=== PATIENT | male | born 1960 | race Caucasian/White ===

== ENCOUNTER 2018-04-08 08:58 | Outpatient (CLI) | payer BC ==
[2018-04-08 09:34] LABS: Estimated GFR-MDRD - POC Greater than 90
--- NOTE | 2018-04-08 12:00 | MRI ---
MRI LUMBAR SPINE WITH AND WITHOUT CONTRAST: INDICATIONS: History of neuropathy and type 2 diabetes with chronic low back pain and bilateral lower extremity ne uropathy. COMPARISON: None. CONTRAST: MultiHance 15 mL. FINDINGS: Five lumbar type vertebral bodies are seen for the purposes of this exam. No marrow signal abnormali ty is evident. The conus is seen to terminate at approximately T12-L1. At the L5-S1 level, there is mild facet joint degenerative change and broad-based disk bulge, but no appreciable central canal or neural foraminal narrowing. At L4-L5, there is mild facet joint degenerative change and broad-based disk bulge, but no appreciabl e central canal or neural foraminal narrowing. At L3-L4, there is no appreciable central canal or neural foraminal narrowing. At L2-L3, there is no appreciable central canal or neural foraminal narrowing. At L1-L2, there is no appreciable central canal or neural foraminal narrowing. At L1-L2, there is no appreciable central canal or neural foraminal narrowing. T12-L1: There is no appreciable central canal or neural foraminal narrowing. Post contrast images demonstrate no area of abnormal enhancement. IMPRESSION: Mild spondylosis of the lumbar spine. POS: CET
== END 2018-04-08 08:59 | disposition home or self-care (01) ==
LOC: SCSMRI 08:58
PROVIDERS: ATTEND Anesthesiology Pain Medicine
DX: M54.5 Low back pain (principal); G89.29 Other chronic pain; E11.40 Type 2 diabetes mellitus with diabetic neuropathy, unspecified; M47.816 Spondylosis without myelopathy or radiculopathy, lumbar region; Z68.27 Body mass index [BMI] 27.0-27.9, adult; Z79.891 Long term (current) use of opiate analgesic
CPT/HCPCS: 72158; 82565

== ENCOUNTER 2021-02-27 07:06 | Outpatient (CLI) | payer BC | END 2021-02-27 07:07 | disposition home or self-care (01) | LOC: ULT 07:06 | PROVIDERS: ATTEND Internal Medicine Endocrinology, Diabetes & Metabolism | DX: R10.12 Left upper quadrant pain (principal); N28.1 Cyst of kidney, acquired; K76.0 Fatty (change of) liver, not elsewhere classified | CPT/HCPCS: 76700 ==

== ENCOUNTER 2022-12-31 08:43 | Outpatient (CLI) | payer OTHER ==
[2022-12-31 10:13] LABS: Bilirubin Neg (Negative); Blood, Urine Negative (Negative); Clarity Clear (Clear); Glucose, Urine (Dipstick) >=1000 mg/dL (Negative); Ketone, Urine 15 mg/dL (Negative); Leukocyte Negative (Negative); Nitrite Negative (Negative); Protein, Urine (Dipstick) 30 mg/dl (Neg-Trace); Urobilinogen Normal mg/dL (Less than 2)
[2022-12-31 10:32] LABS: Hematocrit 48.5 % (38.8-50.0); Hemoglobin 15.7 g/dL (13.5-17.5); Mean Corpuscular HGB CONC 32.4 g/dL (32.0-36.0); Mean Corpuscular Hemoglobin 30.5 pg (27.0-33.0); Mean Corpuscular Volume 94.2 fl (81.2-95.1); Mean Platelet Volume 9.8 fl (7.4-10.4); Platelet Count 338 10x3/uL (150-450); RBC Distribution Width 14.9 % (11.5-14.5); Red Blood Cell (RBC) Count 5.15 10x6/uL (4.32-5.72); White Blood Cell (WBC) Count 9.5 10x3/uL (3.5-10.5)
[2022-12-31 10:38] LABS: RBC/HPF 0-3 HPF (0-3); WBC/HPF 0-3 HPF (0-3)
[2022-12-31 10:39] LABS: Squamous Epithelial None Seen HPF (0-3)
[2022-12-31 10:40] LABS: Bacteria/HPF None Seen HPF (None Seen)
[2022-12-31 10:42] LABS: PTT 29.9 sec (22.0-33.0); Prothrombin Time 10.3 sec (9.5-12.1)
[2022-12-31 10:55] LABS: Anion Gap 17 mmol/L (10-20); BUN (Urea Nitrogen) 18 mg/dL (8.4-25.7); Calc. Creatinine Clearance 0 mL/min (70-130); Calcium 9.2 mg/dL (7.8-10.44); Carbon Dioxide 19 mmol/L (23-31); Chloride 103 mmol/L (98-107); Estimated GFR 99; Glucose 137 mg/dL (80-115); Potassium 4.4 mmol/L (3.5-5.1); Sodium 135 mmol/L (136-145)
== END 2022-12-31 08:44 | disposition home or self-care (01) ==
LOC: LABBT 08:43
PROVIDERS: ATTEND Urology
DX: Z01.818 Encounter for other preprocedural examination (principal); E11.69 Type 2 diabetes mellitus with other specified complication; I25.10 Atherosclerotic heart disease of native coronary artery without angina pectoris; N28.1 Cyst of kidney, acquired; E66.9 Obesity, unspecified; G89.4 Chronic pain syndrome
CPT/HCPCS: 71046; 80048; 81001; 85027; 85610; 85730; 87086; 93005; 93010

== ENCOUNTER 2022-12-31 09:00 | Inpatient (IN) | payer OTHER ==
[2022-12-31 09:22] VITALS: BMI 35.7
[2023-01-14] MEDS ORDERED: fentaNYL PF 100 MCG/2 ML SYRINGE ONE ×2 (06:45)
[2023-01-14] MEDS ORDERED: Bacitracin Zinc Ointment 30 gm TUBE ONE (06:50)
[2023-01-14] MEDS ORDERED: Midazolam HCl 2 mg/2 ml Vial ONE (07:22)
[2023-01-14] MEDS ORDERED: fentaNYL 50 mcg/mL 1 mL Vial ONE ×2 (07:22→13:18)
[2023-01-14] MEDS ORDERED: Vancomycin 1 GM/200 ML (FROZEN) BAG ONE (07:49)
[2023-01-14] MEDS ORDERED: Lidocaine 1% (PF) 30 ML VIAL ONE (08:03)
[2023-01-14] MEDS ORDERED: PHENYLEPHRINE-NS 100 MCG/ML 10 ML SYRINGE ONE (08:39)
[2023-01-14] MEDS ORDERED: PROPOFOL 200 MG/20 ML VIAL ONE (08:39)
[2023-01-14] MEDS ORDERED: Ondansetron PF 4 MG/2 ML Vial ONE ×2 (08:39→12:39)
[2023-01-14] MEDS ORDERED: Rocuronium Bromide 10 MG/ML (10ML VIAL) ONE (08:39)
[2023-01-14] MEDS ORDERED: Lidocaine 1% PF 5 ML VIAL ONE (08:39)
[2023-01-14] MEDS ORDERED: diphenhydrAMINE 50 MG/ML VIAL IVP PRN (09:15)
[2023-01-14] MEDS ORDERED: Moisturizing Cream (Eucerin) 113 GM JAR TOP PRN (09:15)
[2023-01-14] MEDS ORDERED: Zolpidem Tartrate 5 MG TAB PO PRN (09:15)
[2023-01-14] MEDS ORDERED: Naloxone HCl 0.4 mg/ml Vial IVP PRN (09:15)
[2023-01-14] MEDS ORDERED: Naloxone HCl 0.4 mg/ml Vial IV PRN (09:15)
[2023-01-14] MEDS ORDERED: traMADol HCl 50 MG TAB PO PRN ×2 (09:15)
[2023-01-14] MEDS ORDERED: diphenhydrAMINE 50 MG/ML VIAL IM PRN (09:15)
[2023-01-14] MEDS ORDERED: HYDROcodone/Acetaminophen 5/325 mg Tablet PO PRN ×2 (09:15)
[2023-01-14] MEDS ORDERED: diphenhydrAMINE 25 MG CAP PO PRN (09:15)
[2023-01-14] MEDS ORDERED: Promethazine HCl 25 MG/ML VIAL IM PRN (09:15)
[2023-01-14] MEDS ORDERED: Promethazine HCl 25 MG SUPP PR PRN (09:15)
[2023-01-14] MEDS ORDERED: EPINEPHrine 1 MG/ML AMP ONE (09:23)
[2023-01-14] MEDS ORDERED: Bupivacaine 0.25% HCL 30 ML VIAL ONE (09:23)
[2023-01-14] MEDS ORDERED: ACTIVE EPIDURAL FS SCH (09:30)
[2023-01-14] MEDS ORDERED: SUGAMMADEX SODIUM 200 MG/2 ML VIAL ONE (11:36)
[2023-01-14] MEDS ORDERED: Glucagon 1 MG/ML KIT IM PRN (14:35)
[2023-01-14] MEDS ORDERED: Dextrose 5% in Water 1,000 ML IV PRN (14:35)
[2023-01-14] MEDS ORDERED: Mag-Al 1200 mg/1200 mg/30 ML UDCUP PO PRN (14:35)
[2023-01-14] MEDS ORDERED: Bisacodyl 10 MG SUPP PR PRN (14:35)
[2023-01-14] MEDS ORDERED: Dextrose 50% Abboject 50 ML SYRINGE SLOW IVP PRN (14:35)
[2023-01-14] MEDS ORDERED: HumaLOG 300 UNITS/3 ML VIAL SC PRN (14:35)
[2023-01-14] MEDS ORDERED: PHENYLEPHRINE-NS 100 MCG/ML 10 ML SYRINGE IVP PRN (15:01)
[2023-01-14 15:50] LABS: Hematocrit 43.9 % (42.0-52.0); Hemoglobin 13.4 g/dL (14.0-18.0); Mean Corpuscular HGB CONC 30.5 g/dL (32.0-36.0); Mean Corpuscular Hemoglobin 30.9 pg (27.0-31.0); Mean Corpuscular Volume 101.2 fl (78.0-98.0); Platelet Count 268 10x3/uL (130-400); RBC Distribution Width 14.7 % (11.5-14.5); Red Blood Cell (RBC) Count 4.34 mill/uL (4.70-6.10)
[2023-01-14 17:42] LABS: Anion Gap 17 mmol/L (10-20); BUN (Urea Nitrogen) 16 mg/dL (8.4-25.7); Calc. Creatinine Clearance 89 mL/min (70-130); Calcium 8.2 mg/dL (7.8-10.44); Carbon Dioxide 20 mmol/L (23-31); Chloride 104 mmol/L (98-107); Estimated GFR 69; Glucose 229 mg/dL (80-115); Potassium 4.5 mmol/L (3.5-5.1); Sodium 136 mmol/L (136-145)
[2023-01-14] MEDS: Sodium Chloride 0.9% 1,000 ML IV SCH (17:53)
[2023-01-14] MEDS: Ondansetron PF 4 MG/2 ML Vial IVP PRN (17:53)
[2023-01-14] MEDS: Glimepiride 4 MG TAB PO SCH (17:54)
[2023-01-14] MEDS: Gemfibrozil 600 MG TAB PO SCH (17:54)
[2023-01-14] MEDS: Icosapent Ethyl 1 GM CAPSULE PO SCH (17:54)
[2023-01-14] MEDS ORDERED: Acetaminophen 500 MG TAB PO PRN (18:50)
[2023-01-14] MEDS: Vancomycin 1 GM in Premix 1 BAG IVPB SCH (21:02)
[2023-01-14] MEDS: Carvedilol 3.125 MG TAB PO SCH (21:02)
[2023-01-14] MEDS: Rosuvastatin 5 MG TAB PO SCH (21:02)
[2023-01-14] MEDS: Docusate 100 MG CAP PO SCH (21:03)
[2023-01-15] MEDS: Sodium Chloride 0.9% 1,000 ML IV SCH ×4 (04:04→21:03)
[2023-01-15] MEDS: FENTANYL 500 MCG/10 ML VIAL 500 MCG, Bupivacaine 0.75% 10 ML in Sodium Chloride 0.9% 80 ML EPIDURAL SCH ×2 (04:04→19:00)
[2023-01-15 04:58] LABS: #Monocytes 1.9 thou/uL (0.11-0.59); #Neutrophils 13.8 thou/uL (1.40-6.50); %Basophils 0.2 % (0.0-1.0); %Lymphocytes 12.4 % (21.0-51.0); %Monocytes 10.5 % (0.0-10.0); %Neutrophils 76.5 % (42.0-75.0); Hematocrit 42.7 % (42.0-52.0); Hemoglobin 13.3 g/dL (14.0-18.0); Mean Corpuscular HGB CONC 31.1 g/dL (32.0-36.0); Mean Corpuscular Hemoglobin 30.3 pg (27.0-31.0); Mean Platelet Volume 9.6 fL (7.4-10.4); Platelet Count 288 10x3/uL (130-400); Red Blood Cell (RBC) Count 4.39 mill/uL (4.70-6.10); White Blood Cell (WBC) Count 18.1 10x3/uL (4.8-10.8)
[2023-01-15 05:00] LABS: Mean Corpuscular Volume 97.3 fl (78.0-98.0)
[2023-01-15 05:23] LABS: Anion Gap 19 mmol/L (10-20); BUN (Urea Nitrogen) 16 mg/dL (8.4-25.7); Calc. Creatinine Clearance 87 mL/min (70-130); Calcium 8.1 mg/dL (7.8-10.44); Carbon Dioxide 19 mmol/L (23-31); Chloride 104 mmol/L (98-107); Estimated GFR 67; Glucose 207 mg/dL (80-115); Potassium 4.5 mmol/L (3.5-5.1); Sodium 137 mmol/L (136-145)
[2023-01-15] MEDS: LevoFLOXacin 500 MG TAB PO SCH (05:58)
[2023-01-15] MEDS: oxyCODONE 5 MG TAB PO PRN (05:58)
[2023-01-15] MEDS: Icosapent Ethyl 1 GM CAPSULE PO SCH ×2 (08:29→18:01)
[2023-01-15] MEDS: Vancomycin 1 GM in Premix 1 BAG IVPB SCH (08:29)
[2023-01-15] MEDS: Docusate 100 MG CAP PO SCH ×2 (08:30→21:01)
[2023-01-15] MEDS: Carvedilol 3.125 MG TAB PO SCH ×2 (08:30→21:01)
[2023-01-15] MEDS: Glimepiride 4 MG TAB PO SCH ×2 (08:30→18:07)
[2023-01-15] MEDS: Gemfibrozil 600 MG TAB PO SCH ×2 (08:30→18:02)
[2023-01-15] MEDS: DULoxetine 30 MG CAP PO SCH (10:22)
[2023-01-15] MEDS ORDERED: DULoxetine 30 MG CAP PO SCH (12:45)
[2023-01-15] MEDS: Acetaminophen 500 MG TAB PO SCH ×3 (13:42→18:07)
[2023-01-15 18:02] LABS: Actual Bicarbonate (HCO3a) 22.4 mEq/L (22-28); Base Excess (BEa) -3.7 mEq/L (-2.0 to +3.0); CO2 Tension 44.2 mmHg (35.0-45.0); Calcium, Ionized (arterial) 1.08 mmol/L (1.12-1.30); Carboxyhemoglobin (COHb) 2.3 gm% (0.0-3.0); Hematocrit-ABG 38 % (42.0-52.0); Hemoglobin (Hb) 12.9 g/dL (14.0-18.0); O2 Tension (PaO2), arterial 77.3 mmHg (> 80.0); Potassium - ABG Lab 3.98 mmol/L (3.70-5.30); pH, Arterial 7.322 (7.35-7.45)
[2023-01-15 18:04] LABS: Puncture Site RRA
[2023-01-15] MEDS ORDERED: Sodium Chloride 0.9% 500 ML IVPB SCH (18:15)
[2023-01-15] MEDS: HYDROcodone/Acetaminophen 5/325 mg Tablet PO PRN (18:32)
[2023-01-15] MEDS: Rosuvastatin 5 MG TAB PO SCH (21:01)
[2023-01-16] MEDS: Acetaminophen 500 MG TAB PO SCH ×4 (01:03→16:43)
[2023-01-16 04:00] LABS: #Monocytes 1.4 thou/uL (0.11-0.59); #Neutrophils 14.8 thou/uL (1.40-6.50); %Basophils 0.1 % (0.0-1.0); %Lymphocytes 7.5 % (21.0-51.0); %Monocytes 7.7 % (0.0-10.0); %Neutrophils 84.1 % (42.0-75.0); Hemoglobin 11.6 g/dL (14.0-18.0); Mean Corpuscular HGB CONC 30.5 g/dL (32.0-36.0); Mean Corpuscular Hemoglobin 29.8 pg (27.0-31.0); Mean Corpuscular Volume 97.7 fl (78.0-98.0); Mean Platelet Volume 9.5 fL (7.4-10.4); Platelet Count 250 10x3/uL (130-400); RBC Distribution Width 14.9 % (11.5-14.5); Red Blood Cell (RBC) Count 3.89 mill/uL (4.70-6.10); White Blood Cell (WBC) Count 17.6 10x3/uL (4.8-10.8)
[2023-01-16 04:24] LABS: Anion Gap 18 mmol/L (10-20); BUN (Urea Nitrogen) 21 mg/dL (8.4-25.7); Calc. Creatinine Clearance 99 mL/min (70-130); Calcium 7.8 mg/dL (7.8-10.44); Carbon Dioxide 17 mmol/L (23-31); Chloride 108 mmol/L (98-107); Estimated GFR 78; Glucose 170 mg/dL (80-115); Potassium 4.3 mmol/L (3.5-5.1); Sodium 139 mmol/L (136-145)
[2023-01-16] MEDS: LevoFLOXacin 500 MG TAB PO SCH (05:41)
[2023-01-16] MEDS: Sodium Chloride 0.9% 1,000 ML IV SCH ×2 (06:54→16:42)
[2023-01-16] MEDS: FENTANYL 500 MCG/10 ML VIAL 500 MCG, Bupivacaine 0.75% 10 ML in Sodium Chloride 0.9% 80 ML EPIDURAL SCH (07:01)
[2023-01-16] MEDS: Carvedilol 3.125 MG TAB PO SCH ×2 (08:48→20:01)
[2023-01-16] MEDS: Icosapent Ethyl 1 GM CAPSULE PO SCH ×2 (08:48→16:40)
[2023-01-16] MEDS: Gemfibrozil 600 MG TAB PO SCH ×2 (08:48→16:40)
[2023-01-16] MEDS: Glimepiride 4 MG TAB PO SCH ×2 (08:48→16:40)
[2023-01-16] MEDS: Docusate 100 MG CAP PO SCH ×2 (08:48→20:01)
[2023-01-16] MEDS ORDERED: DULoxetine 30 MG CAP PO SCH (09:00)
[2023-01-16] MEDS: DULoxetine 30 MG CAP PO SCH (09:39)
[2023-01-16] MEDS: oxyCODONE 5 MG TAB PO PRN ×2 (17:06→22:48)
[2023-01-16] MEDS: Rosuvastatin 5 MG TAB PO SCH (20:01)
[2023-01-17] MEDS: Acetaminophen 500 MG TAB PO SCH ×4 (01:18→17:09)
[2023-01-17] MEDS: Sodium Chloride 0.9% 1,000 ML IV SCH (01:18)
[2023-01-17 04:08] LABS: #Monocytes 2.5 thou/uL (0.11-0.59); #Neutrophils 17.3 thou/uL (1.40-6.50); %Basophils 0.2 % (0.0-1.0); %Monocytes 11.4 % (0.0-10.0); %Neutrophils 79.8 % (42.0-75.0); Hemoglobin 12.3 g/dL (14.0-18.0); Mean Corpuscular HGB CONC 28.6 g/dL (32.0-36.0); Mean Corpuscular Hemoglobin 30.4 pg (27.0-31.0); Mean Corpuscular Volume 106.2 fl (78.0-98.0); Mean Platelet Volume 9.6 fL (7.4-10.4); Platelet Count 258 10x3/uL (130-400); RBC Distribution Width 15.1 % (11.5-14.5); Red Blood Cell (RBC) Count 4.05 mill/uL (4.70-6.10); White Blood Cell (WBC) Count 21.7 10x3/uL (4.8-10.8)
[2023-01-17 04:32] LABS: Calcium 8.5 mg/dL (7.8-10.44); Chloride 110 mmol/L (98-107); Potassium 5.1 mmol/L (3.5-5.1); Sodium 135 mmol/L (136-145)
[2023-01-17 04:37] LABS: Carbon Dioxide Less than 8 mmol/L (23-31)
[2023-01-17 04:38] LABS: BUN (Urea Nitrogen) 27 mg/dL (8.4-25.7); Calc. Creatinine Clearance 81 mL/min (70-130); Estimated GFR 61; Glucose 174 mg/dL (80-115)
[2023-01-17 04:53] LABS: Anisocytosis SLIGHT = 6-15 cells HPF (0-5); CellaVision Operator ID lab.sh2; Hypochromia SLIGHT = 6-15 cells HPF (0-5); Macrocytosis SLIGHT = 6-15 cells HPF (0-5); Platelet Adequacy Comment Platelets Normal; Polychromasia SLIGHT = 2-3 cells HPF (0-2)
[2023-01-17 05:37] LABS: Base Excess -12.2 mEq/L (-2.0 to +3.0); Calcium, Ionized (venous) 1.01 mmol/L (1.16-1.32); Chloride (VBG) 106 mmol/L (98-106); Hematocrit-VBG 37 % (42.0-52.0); Hemoglobin (Hb) 12.6 g/dL (13.1-17.2); Potassium (VBG) 4.33 mmol/L (3.70-5.30); Sodium 137 mmol/L (133-146); pH (venous) 7.249 (7.32-7.43)
[2023-01-17] MEDS ORDERED: Sodium Bicarb 50 MEQ/50 ML Abboject 8.4% SYRINGE ONE (05:41)
[2023-01-17] MEDS: oxyCODONE 5 MG TAB PO PRN ×4 (05:54→21:14)
[2023-01-17 05:57] LABS: Lactic Acid 0.8 mmol/L (0.5-2.2)
[2023-01-17 06:00] LABS: Anion Gap 20 mmol/L (10-20); BUN (Urea Nitrogen) 28 mg/dL (8.4-25.7); Calc. Creatinine Clearance 83 mL/min (70-130); Calcium 8.5 mg/dL (7.8-10.44); Carbon Dioxide 12 mmol/L (23-31); Chloride 108 mmol/L (98-107); Estimated GFR 63; Glucose 184 mg/dL (80-115); Potassium 4.3 mmol/L (3.5-5.1); Sodium 136 mmol/L (136-145)
[2023-01-17] MEDS ORDERED: Sodium Bicarb 50 MEQ/50 ML Abboject 8.4% SYRINGE IVP SCH (06:00)
[2023-01-17] MEDS: Sodium Bicarbonate 150 MEQ in Dextrose 5 %-0.45 % NaCl 1,000 ML IV SCH ×2 (06:50→17:09)
[2023-01-17 07:07] LABS: Bacteria/HPF None Seen HPF (None Seen); Bilirubin Negative (Negative); Blood, Urine 2+ (Negative); CAUTI Indications for Culture Pelvic or flank pain; Clarity Clear (Clear); Glucose, Urine (Dipstick) Greater than 1000 mg/dL (Negative); Ketone, Urine 100 mg/dL (Negative); Leukocyte Negative Leu/uL (Negative); Nitrite Negative (Negative); Protein, Urine (Dipstick) 50 mg/dL (Neg-Trace); Specific Gravity, Urine 1.026 (1.002-1.036); Squamous Epithelial None Seen HPF (0-3); Urobilinogen Normal mg/dL (Less than 2); pH, Urine 5.5 (5.0-9.0)
[2023-01-17 07:08] LABS: Urine Culture Reflex Yes Yes
[2023-01-17] MEDS: DULoxetine 30 MG CAP PO SCH (10:01)
[2023-01-17] MEDS: LevoFLOXacin 750 mg/D5W 750 MG in Premix 1 BAG IVPB SCH (10:01)
[2023-01-17] MEDS: Glimepiride 4 MG TAB PO SCH ×2 (10:02→17:08)
[2023-01-17] MEDS: Carvedilol 3.125 MG TAB PO SCH ×2 (10:02→21:12)
[2023-01-17] MEDS: Icosapent Ethyl 1 GM CAPSULE PO SCH ×2 (10:02→17:07)
[2023-01-17] MEDS: Docusate 100 MG CAP PO SCH ×2 (10:02→21:12)
[2023-01-17] MEDS: Gemfibrozil 600 MG TAB PO SCH ×2 (10:05→17:08)
[2023-01-17] MEDS: FENTANYL 500 MCG/10 ML VIAL 500 MCG, Bupivacaine 0.75% 10 ML in Sodium Chloride 0.9% 80 ML EPIDURAL SCH (20:34)
[2023-01-17] MEDS: Rosuvastatin 5 MG TAB PO SCH (21:12)
[2023-01-17] MEDS: Insulin Glargine 30 UNITS/0.3 ML VIAL SC SCH ×2 (21:13→21:14)
[2023-01-18] MEDS: Acetaminophen 500 MG TAB PO SCH ×5 (01:20→23:36)
[2023-01-18 04:11] LABS: #Monocytes 1.1 thou/uL (0.11-0.59); %Basophils 0.1 % (0.0-1.0); %Eosinophils 0.1 % (0.0-10.0); %Lymphocytes 9.6 % (21.0-51.0); %Neutrophils 81.8 % (42.0-75.0); Hematocrit 39.1 % (42.0-52.0); Hemoglobin 12.4 g/dL (14.0-18.0); Mean Corpuscular HGB CONC 31.7 g/dL (32.0-36.0); Mean Corpuscular Hemoglobin 30.2 pg (27.0-31.0); Mean Platelet Volume 9.6 fL (7.4-10.4); Platelet Count 283 10x3/uL (130-400); RBC Distribution Width 14.7 % (11.5-14.5); White Blood Cell (WBC) Count 13.5 10x3/uL (4.8-10.8)
[2023-01-18 04:15] LABS: Mean Corpuscular Volume 95.4 fl (78.0-98.0)
[2023-01-18 04:34] LABS: Anion Gap 22 mmol/L (10-20); BUN (Urea Nitrogen) 28 mg/dL (8.4-25.7); Calc. Creatinine Clearance 97 mL/min (70-130); Calcium 8.4 mg/dL (7.8-10.44); Carbon Dioxide 15 mmol/L (23-31); Chloride 104 mmol/L (98-107); Estimated GFR 76; Glucose 215 mg/dL (80-115); Sodium 137 mmol/L (136-145)
[2023-01-18] MEDS: Sodium Bicarbonate 150 MEQ in Dextrose 5 %-0.45 % NaCl 1,000 ML IV SCH ×2 (05:45→17:20)
[2023-01-18] MEDS: Ondansetron PF 4 MG/2 ML Vial IVP PRN (05:48)
[2023-01-18] MEDS: LevoFLOXacin 750 mg/D5W 750 MG in Premix 1 BAG IVPB SCH (09:09)
[2023-01-18] MEDS: FENTANYL 500 MCG/10 ML VIAL 500 MCG, Bupivacaine 0.75% 10 ML in Sodium Chloride 0.9% 80 ML EPIDURAL SCH ×2 (09:17→21:47)
[2023-01-18] MEDS: oxyCODONE 5 MG TAB PO PRN (09:18)
[2023-01-18] MEDS: Gemfibrozil 600 MG TAB PO SCH ×2 (12:26→16:20)
[2023-01-18] MEDS: Icosapent Ethyl 1 GM CAPSULE PO SCH ×2 (12:26→16:20)
[2023-01-18] MEDS: Glimepiride 4 MG TAB PO SCH ×2 (12:26→16:20)
[2023-01-18] MEDS: Carvedilol 3.125 MG TAB PO SCH ×2 (12:27→20:20)
[2023-01-18] MEDS: Polyethylene Glycol 3350 17 GM Packet PO PRN (12:28)
[2023-01-18] MEDS: DULoxetine 30 MG CAP PO SCH (12:28)
[2023-01-18] MEDS: Docusate 100 MG CAP PO SCH (12:32)
[2023-01-18] MEDS: HumaLOG 300 UNITS/3 ML VIAL SC PRN (18:16)
[2023-01-18] MEDS: Senokot S 8.6-50 MG TAB PO SCH (20:20)
[2023-01-18] MEDS: Rosuvastatin 5 MG TAB PO SCH (20:20)
[2023-01-18] MEDS: Insulin Glargine 30 UNITS/0.3 ML VIAL SC SCH ×2 (20:24→20:26)
[2023-01-18] MEDS: hydrALAZINE 20 MG/ML VIAL SLOW IVP PRN (22:08)
[2023-01-18] MEDS: Sodium Bicarbonate Tab 325 MG TAB PO SCH (23:35)
[2023-01-19] MEDS: HumaLOG 300 UNITS/3 ML VIAL SC PRN (00:11)
[2023-01-19] MEDS: HYDROcodone/Acetaminophen 5/325 mg Tablet PO PRN ×2 (00:11→07:44)
[2023-01-19] MEDS: Ondansetron PF 4 MG/2 ML Vial IVP PRN (00:11)
[2023-01-19] MEDS: Sodium Bicarbonate 150 MEQ in Dextrose 5 %-0.45 % NaCl 1,000 ML IV SCH ×2 (04:57→12:10)
[2023-01-19] MEDS: Sodium Bicarbonate Tab 325 MG TAB PO SCH (05:21)
[2023-01-19] MEDS: Acetaminophen 500 MG TAB PO SCH ×3 (05:22→17:05)
[2023-01-19 05:48] LABS: #Monocytes 0.8 thou/uL (0.11-0.59); %Basophils 0.1 % (0.0-1.0); %Eosinophils 0.2 % (0.0-10.0); %Lymphocytes 12.5 % (21.0-51.0); %Monocytes 7.4 % (0.0-10.0); %Neutrophils 79.4 % (42.0-75.0); Hematocrit 36.4 % (42.0-52.0); Hemoglobin 11.3 g/dL (14.0-18.0); Mean Corpuscular Hemoglobin 29.7 pg (27.0-31.0); Mean Corpuscular Volume 95.5 fl (78.0-98.0); Mean Platelet Volume 9.2 fL (7.4-10.4); Platelet Count 275 10x3/uL (130-400); RBC Distribution Width 14.5 % (11.5-14.5); Red Blood Cell (RBC) Count 3.81 mill/uL (4.70-6.10); White Blood Cell (WBC) Count 11.3 10x3/uL (4.8-10.8)
[2023-01-19 06:14] LABS: Anion Gap 14 mmol/L (10-20); BUN (Urea Nitrogen) 27 mg/dL (8.4-25.7); Calc. Creatinine Clearance 108 mL/min (70-130); Calcium 8.4 mg/dL (7.8-10.44); Carbon Dioxide 32 mmol/L (23-31); Chloride 97 mmol/L (98-107); Estimated GFR 87; Glucose 233 mg/dL (80-115); Potassium 3.1 mmol/L (3.5-5.1); Sodium 140 mmol/L (136-145)
[2023-01-19] MEDS: Glimepiride 4 MG TAB PO SCH ×2 (07:36→17:05)
[2023-01-19] MEDS: Carvedilol 3.125 MG TAB PO SCH ×2 (07:36→20:30)
[2023-01-19] MEDS: Gemfibrozil 600 MG TAB PO SCH ×2 (07:36→17:05)
[2023-01-19] MEDS: Senokot S 8.6-50 MG TAB PO SCH ×2 (07:36→20:30)
[2023-01-19] MEDS: Polyethylene Glycol 3350 17 GM Packet PO PRN (07:36)
[2023-01-19] MEDS: Icosapent Ethyl 1 GM CAPSULE PO SCH ×2 (07:36→17:05)
[2023-01-19] MEDS: DULoxetine 30 MG CAP PO SCH (07:37)
[2023-01-19] MEDS: LevoFLOXacin 750 mg/D5W 750 MG in Premix 1 BAG IVPB SCH (07:37)
[2023-01-19] MEDS ORDERED: Electrolyte Replacement Protocol FS PRN (08:15)
[2023-01-19] MEDS ORDERED: Potassium Chloride 20 MEQ TAB PO SCH (08:15)
[2023-01-19] MEDS: FENTANYL 500 MCG/10 ML VIAL 500 MCG, Bupivacaine 0.75% 10 ML in Sodium Chloride 0.9% 80 ML EPIDURAL SCH (10:26)
[2023-01-19 13:58] LABS: Potassium 3.4 mmol/L (3.5-5.1)
[2023-01-19 15:36] LABS: Actual Bicarbonate (HCO3v) 13.9 mEq/L (22-28)
[2023-01-19] MEDS: Rosuvastatin 5 MG TAB PO SCH (20:30)
[2023-01-19] MEDS: Insulin Glargine 30 UNITS/0.3 ML VIAL SC SCH (20:41)
[2023-01-19] MEDS: oxyCODONE 5 MG TAB PO PRN (21:34)
[2023-01-20] MEDS: Acetaminophen 500 MG TAB PO SCH ×2 (00:53→06:06)
[2023-01-20] MEDS: FENTANYL 500 MCG/10 ML VIAL 500 MCG, Bupivacaine 0.75% 10 ML in Sodium Chloride 0.9% 80 ML EPIDURAL SCH (03:36)
[2023-01-20] MEDS: Sodium Bicarbonate 150 MEQ in Dextrose 5 %-0.45 % NaCl 1,000 ML IV SCH (05:17)
[2023-01-20 05:47] LABS: #Eosinphils 0.2 thou/uL (0.0-0.7); #Monocytes 0.7 thou/uL (0.11-0.59); #Neutrophils 7.4 thou/uL (1.40-6.50); %Basophils 0.2 % (0.0-1.0); %Eosinophils 1.8 % (0.0-10.0); %Lymphocytes 18.2 % (21.0-51.0); %Monocytes 7.2 % (0.0-10.0); %Neutrophils 72.2 % (42.0-75.0); Hematocrit 35.3 % (42.0-52.0); Hemoglobin 11.1 g/dL (14.0-18.0); Mean Corpuscular HGB CONC 31.4 g/dL (32.0-36.0); Mean Corpuscular Hemoglobin 29.6 pg (27.0-31.0); Mean Corpuscular Volume 94.1 fl (78.0-98.0); Mean Platelet Volume 9.5 fL (7.4-10.4); Platelet Count 280 10x3/uL (130-400); RBC Distribution Width 14.2 % (11.5-14.5); Red Blood Cell (RBC) Count 3.75 mill/uL (4.70-6.10); White Blood Cell (WBC) Count 10.3 10x3/uL (4.8-10.8)
[2023-01-20 06:09] LABS: Anion Gap 14 mmol/L (10-20); BUN (Urea Nitrogen) 21 mg/dL (8.4-25.7); Calc. Creatinine Clearance 137 mL/min (70-130); Calcium 8.4 mg/dL (7.8-10.44); Carbon Dioxide 30 mmol/L (23-31); Chloride 96 mmol/L (98-107); Estimated GFR 101; Glucose 83 mg/dL (80-115); Potassium 3.5 mmol/L (3.5-5.1); Sodium 136 mmol/L (136-145)
[2023-01-20] MEDS ORDERED: Potassium Chloride 20 MEQ TAB PO SCH ×2 (08:00→14:00)
[2023-01-20] MEDS: LevoFLOXacin 750 mg/D5W 750 MG in Premix 1 BAG IVPB SCH (08:14)
[2023-01-20] MEDS: Glimepiride 4 MG TAB PO SCH ×2 (08:15→17:42)
[2023-01-20] MEDS: Senokot S 8.6-50 MG TAB PO SCH ×2 (08:15→19:50)
[2023-01-20] MEDS: Gemfibrozil 600 MG TAB PO SCH ×2 (08:15→17:42)
[2023-01-20] MEDS: DULoxetine 30 MG CAP PO SCH (08:15)
[2023-01-20] MEDS: Carvedilol 3.125 MG TAB PO SCH ×2 (08:16→19:50)
[2023-01-20] MEDS: Icosapent Ethyl 1 GM CAPSULE PO SCH ×2 (08:16→17:48)
[2023-01-20] MEDS ORDERED: Acetaminophen 325 MG TAB PO PRN (11:50)
[2023-01-20] MEDS ORDERED: HYDROcodone/Acetaminophen 10/325 mg Tablet PO PRN (11:51)
[2023-01-20 12:25] LABS: Potassium 3.4 mmol/L (3.5-5.1)
[2023-01-20] MEDS: Tamsulosin HCl 0.4 MG CAP PO SCH (19:49)
[2023-01-20] MEDS: HYDROcodone/Acetaminophen 10/325 mg Tablet PO PRN (19:50)
[2023-01-20] MEDS: Rosuvastatin 5 MG TAB PO SCH (19:50)
[2023-01-20] MEDS: Insulin Glargine 30 UNITS/0.3 ML VIAL SC SCH (21:23)
[2023-01-21] MEDS: FENTANYL 500 MCG/10 ML VIAL 500 MCG, Bupivacaine 0.75% 10 ML in Sodium Chloride 0.9% 80 ML EPIDURAL SCH
[2023-01-21] MEDS: HYDROcodone/Acetaminophen 10/325 mg Tablet PO PRN ×5 (00:31→19:39)
[2023-01-21 05:47] LABS: #Eosinphils 0.1 thou/uL (0.0-0.7); #Monocytes 0.8 thou/uL (0.11-0.59); #Neutrophils 6.2 thou/uL (1.40-6.50); %Basophils 0.1 % (0.0-1.0); %Eosinophils 1.5 % (0.0-10.0); %Lymphocytes 21.3 % (21.0-51.0); %Monocytes 8.5 % (0.0-10.0); %Neutrophils 68.3 % (42.0-75.0); Hemoglobin 11.4 g/dL (14.0-18.0); Mean Corpuscular HGB CONC 30.8 g/dL (32.0-36.0); Mean Corpuscular Hemoglobin 29.4 pg (27.0-31.0); Mean Corpuscular Volume 95.4 fl (78.0-98.0); Mean Platelet Volume 9.4 fL (7.4-10.4); Platelet Count 280 10x3/uL (130-400); RBC Distribution Width 14.3 % (11.5-14.5); Red Blood Cell (RBC) Count 3.88 mill/uL (4.70-6.10); White Blood Cell (WBC) Count 9.1 10x3/uL (4.8-10.8)
[2023-01-21 06:11] LABS: Anion Gap 10 mmol/L (10-20); BUN (Urea Nitrogen) 18 mg/dL (8.4-25.7); Calc. Creatinine Clearance 135 mL/min (70-130); Calcium 8.6 mg/dL (7.8-10.44); Carbon Dioxide 33 mmol/L (23-31); Chloride 95 mmol/L (98-107); Estimated GFR 101; Glucose 81 mg/dL (80-115); Potassium 3.4 mmol/L (3.5-5.1); Sodium 135 mmol/L (136-145)
[2023-01-21] MEDS: Gemfibrozil 600 MG TAB PO SCH ×2 (06:35→17:36)
[2023-01-21] MEDS: Senokot S 8.6-50 MG TAB PO SCH ×2 (08:58→19:38)
[2023-01-21] MEDS: Icosapent Ethyl 1 GM CAPSULE PO SCH ×2 (08:58→17:35)
[2023-01-21] MEDS: Carvedilol 3.125 MG TAB PO SCH ×2 (08:58→19:38)
[2023-01-21] MEDS: Glimepiride 4 MG TAB PO SCH ×2 (08:58→17:35)
[2023-01-21] MEDS: DULoxetine 30 MG CAP PO SCH (08:58)
[2023-01-21] MEDS: LevoFLOXacin 750 mg/D5W 750 MG in Premix 1 BAG IVPB SCH (08:58)
[2023-01-21] MEDS ORDERED: Potassium Chloride 20 MEQ TAB PO SCH (10:00)
[2023-01-21] MEDS ORDERED: Furosemide 20 MG/2 ML VIAL SLOW IVP SCH (11:15)
[2023-01-21] MEDS: hydrALAZINE 20 MG/ML VIAL SLOW IVP PRN (15:59)
[2023-01-21] MEDS: HumaLOG 300 UNITS/3 ML VIAL SC PRN (17:41)
[2023-01-21] MEDS: Rosuvastatin 5 MG TAB PO SCH (19:38)
[2023-01-21] MEDS: Tamsulosin HCl 0.4 MG CAP PO SCH (19:39)
[2023-01-21] MEDS: Insulin Glargine 30 UNITS/0.3 ML VIAL SC SCH (20:41)
[2023-01-22] MEDS: HYDROcodone/Acetaminophen 10/325 mg Tablet PO PRN ×3 (00:23→11:43)
[2023-01-22] MEDS: Gemfibrozil 600 MG TAB PO SCH (05:42)
[2023-01-22 05:51] LABS: #Eosinphils 0.1 thou/uL (0.0-0.7); #Monocytes 0.5 thou/uL (0.11-0.59); #Neutrophils 4.8 thou/uL (1.40-6.50); %Eosinophils 1.4 % (0.0-10.0); %Lymphocytes 24.2 % (21.0-51.0); %Monocytes 7.5 % (0.0-10.0); %Neutrophils 66.6 % (42.0-75.0); Hematocrit 33.3 % (42.0-52.0); Hemoglobin 10.6 g/dL (14.0-18.0); Mean Corpuscular HGB CONC 31.8 g/dL (32.0-36.0); Mean Corpuscular Hemoglobin 29.7 pg (27.0-31.0); Mean Corpuscular Volume 93.3 fl (78.0-98.0); Mean Platelet Volume 9.6 fL (7.4-10.4); Platelet Count 239 10x3/uL (130-400); RBC Distribution Width 14.3 % (11.5-14.5); Red Blood Cell (RBC) Count 3.57 mill/uL (4.70-6.10); White Blood Cell (WBC) Count 7.2 10x3/uL (4.8-10.8)
[2023-01-22 06:19] LABS: Anion Gap 15 mmol/L (10-20); BUN (Urea Nitrogen) 16 mg/dL (8.4-25.7); Calc. Creatinine Clearance 123 mL/min (70-130); Calcium 8.5 mg/dL (7.8-10.44); Carbon Dioxide 28 mmol/L (23-31); Chloride 95 mmol/L (98-107); Estimated GFR 98; Glucose 150 mg/dL (80-115); Sodium 135 mmol/L (136-145)
[2023-01-22] MEDS ORDERED: Potassium Chloride 20 MEQ TAB PO SCH (08:00)
[2023-01-22] MEDS: Glimepiride 4 MG TAB PO SCH (08:42)
[2023-01-22] MEDS: Senokot S 8.6-50 MG TAB PO SCH (08:42)
[2023-01-22] MEDS: LevoFLOXacin 750 mg/D5W 750 MG in Premix 1 BAG IVPB SCH (08:42)
[2023-01-22] MEDS: DULoxetine 30 MG CAP PO SCH (08:43)
[2023-01-22] MEDS: Icosapent Ethyl 1 GM CAPSULE PO SCH (08:43)
[2023-01-22] MEDS: Carvedilol 3.125 MG TAB PO SCH (08:43)
[2023-01-22 12:39] VITALS: BP 178/76; TEMP 98.6
== END 2023-01-22 14:50 | disposition home or self-care (01) | DRG 657 ==
LOC: SURG A 01-14 05:55 → IMCU/EMU 01-14 15:50 → SURG A 01-20 13:19
PROVIDERS: ADMIT Urology; ATTEND Urology
PROC: 0TB00ZZ Excision of Right Kidney, Open Approach (ICD-10-PCS; principal; 2023-01-14)
PROC: 4A033R1 Measurement of Arterial Saturation, Peripheral, Percutaneous Approach (ICD-10-PCS; 2023-01-15)
PROC: 3E033XZ Introduction of Vasopressor into Peripheral Vein, Percutaneous Approach (ICD-10-PCS; 2023-01-15)
PROC: 4A043R1 Measurement of Venous Saturation, Peripheral, Percutaneous Approach (ICD-10-PCS; 2023-01-17)
DX: C64.1 Malignant neoplasm of right kidney, except renal pelvis (principal); E87.20 Acidosis, unspecified; K91.89 Other postprocedural complications and disorders of digestive system; K56.7 Ileus, unspecified; N28.1 Cyst of kidney, acquired; N28.89 Other specified disorders of kidney and ureter; E11.9 Type 2 diabetes mellitus without complications; E78.5 Hyperlipidemia, unspecified; I10 Essential (primary) hypertension; R06.82 Tachypnea, not elsewhere classified; E11.42 Type 2 diabetes mellitus with diabetic polyneuropathy; N25.89 Other disorders resulting from impaired renal tubular function; R26.81 Unsteadiness on feet; R50.82 Postprocedural fever; J98.6 Disorders of diaphragm; R33.9 Retention of urine, unspecified; E66.01 Morbid (severe) obesity due to excess calories; Z68.35 Body mass index [BMI] 35.0-35.9, adult
CPT/HCPCS: 36415; 36416; 36600; 71045; 74018; 74176; 80048; 81001; 82010; 82570; 82805; 83605; 85025; 85027; 86140; 86850; 86900; 86901; 87040; 87086; 88307; 88342; 94667; 94668; C1713; C1776; C1889; J0171; J0360; J1650; J1815; J1940; J1956; J2001; J2250; J2405; J2704; J3010; J3370-JW; J3490; J7030; J7042; J7050; S0020